=== PATIENT | male | born 1960 | race Caucasian/White ===

== ENCOUNTER 2018-06-29 05:50 | Day surgery (SDC) | payer OTHER ==
[2018-06-29] MEDS ORDERED: FENTAnyl 50 MCG/ML VIAL (08:00)
[2018-06-29] MEDS ORDERED: MIDAZOLAM 1 MG/ML 2 ML INJ (08:00)
== END 2018-06-29 10:41 | disposition home or self-care (01) ==
LOC: GIL 05:50
DX: K29.30 Chronic superficial gastritis without bleeding (principal); K44.9 Diaphragmatic hernia without obstruction or gangrene; K21.9 Gastro-esophageal reflux disease without esophagitis; I10 Essential (primary) hypertension; E78.5 Hyperlipidemia, unspecified
CPT/HCPCS: 43239; 88305; 88312